=== PATIENT | female | born 1955 | race Hispanic/Latino ===

== ENCOUNTER → 2020-06-30 | Outpatient (CLI) | payer OTHER | END | disposition home or self-care (01) | LOC: RAH 09:58 | PROVIDERS: ATTEND Family Medicine Adult Medicine | DX: Z13.6 Encounter for screening for cardiovascular disorders (principal) | CPT/HCPCS: 75571 ==

== ENCOUNTER 2022-04-12 05:33 | Day surgery (SDC) | payer MEDICARE ==
[2022-04-11 12:56] VITALS: BP 174/86
[2022-04-12] VITALS (11 sets, daily range): BP systolic 134–171; BP diastolic 77–88
[~2022-04-12] VITALS: Ht 170.2 cm; Wt 85.7 kg
[~2022-04-12 05:33] MED LIST: AEC81 PO; CEFAZOLIN SODIUM 2 GM VIAL IV SCH
[2022-04-12] MEDS ORDERED: CEFAZOLIN SODIUM 1 GM VIAL ONE (06:29)
[2022-04-12] MEDS ORDERED: MIDAZOLAM HCL 1 MG/ML 2ML VIAL ONE (06:59)
[2022-04-12] MEDS ORDERED: SODIUM BICARB [NEONATAL] 4.2% 10ML SYG ONE (06:59)
[2022-04-12] MEDS ORDERED: BUPIVACAINE/PF 0.25% 30ML VIAL IJ ONE (06:59)
[2022-04-12] MEDS ORDERED: FENTANYL CITRATE PF 50 MCG/1 ML 2ML VIAL ONE (07:00)
[2022-04-12] MEDS ORDERED: LIDOCAINE HCL 1% 20 ML VIAL ONE (07:00)
[2022-04-12] MEDS ORDERED: IOPAMIDOL 10 ML VIAL ONE (07:29)
== END 2022-04-12 09:11 | disposition home or self-care (01) ==
LOC: DAH 05:33
PROVIDERS: ATTEND Neurological Surgery
DX: M53.3 Sacrococcygeal disorders, not elsewhere classified (principal); M54.59 Other low back pain; Z79.899 Other long term (current) drug therapy; Z20.822 Contact with and (suspected) exposure to COVID-19
CPT/HCPCS: 72202; 87635; A4215 ×2; A4221; A4222; A4223; A4663; A6260; C9803; G0260; J0690; J1030; J2250; J3010; J3490 ×2; Q9966